=== PATIENT | female | born 1995 | race Two or more races ===

== ENCOUNTER 2022-04-18 22:11 | Emergency (ER) | payer MEDICAID ==
[~2022-04-18] VITALS: Ht 165.1 cm; Wt 82.0 kg
[2022-04-18] MEDS ORDERED: TETANUS, DIPHTHERIA, PERTUSSIS VAC/PF 0.5ML (>10YR OLD) IM ONE (23:30)
[2022-04-18] MEDS ORDERED: ACETAMINOPHEN 500MG TABLET PO ONE (23:30)
[2022-04-19] MEDS ORDERED: ACET-2708 MT (00:29)
[2022-04-19 00:30] VITALS: BP 140/90
== END 2022-04-19 00:40 | disposition home or self-care (01) ==
LOC: ER 22:11
DX: S01.81XA Laceration without foreign body of other part of head, initial encounter (principal); Y04.2XXA Assault by strike against or bumped into by another person, initial encounter; Y93.89 Activity, other specified; Y92.89 Other specified places as the place of occurrence of the external cause
CPT/HCPCS: 70450; 81025; 90471; 90715; 99284; Z7610